=== PATIENT | female | born 1975 | race Two or more races ===

== ENCOUNTER 2019-02-09 14:29 | Emergency (ER) | payer OTHER ==
[~2019-02-09] VITALS: Ht 154.9 cm; Wt 69.9 kg
[2019-02-09] MEDS ORDERED: IV NORMAL SALINE 1000ML BAG 1,000 ML IV ONE (16:00)
[2019-02-09] MEDS ORDERED: PROCHLORPERAZINE 10 MG/2 ML VIAL. IV ONE (16:00)
[2019-02-09] MEDS ORDERED: diphenhydrAMINE 50 MG/ML VIAL IVP ONE (16:00)
[2019-02-09] MEDS ORDERED: KETOROLAC 30 MG/ML VIAL. IV ONE (16:30)
--- NOTE | 2019-02-09 16:35 | PHYS DOC ---
Past Medical History Past Medical History: No Pertinent History (IRENE BARKLEY APRN) Past Surgical History: No Surgical History (IRENE BARKLEY APRN) Alcohol Use: None Drug Use: None (IRENE BARKLEY APRN) Adult General Chief Complaint Chief Complaint: HEADACHE HPI HPI Patient is a 43 year old female who presents with awoke this morning with a frontal headache that does not radiate and she rates her pain a 10 out 10. Patient states she has had this headache before. Patient states in the past she had nausea and vomiting with it this time she is not. Vital signs within normal limits she is afebrile. Patient states she has some weakness in her legs. She states she did not take any pain medication today. Patient's history is diabetes of which takes metformin. (IRENE BARKLEY APRN) Review of Systems Review of Systems Constitutional: Denies fever or chills [] Eyes: Denies change in visual acuity, redness, or eye pain [] HENT: Denies nasal congestion or sore throat [] Respiratory: Denies cough or shortness of breath [] Cardiovascular: No additional information not addressed in HPI [] GI: Denies abdominal pain, nausea, vomiting, bloody stools or diarrhea [] : Denies dysuria or hematuria [] Musculoskeletal: Denies back pain or joint pain [] Integument: Denies rash or skin lesions [] Neurologic: headache, focal weakness or denies sensory changes [] All other systems were reviewed and found to be within normal limits, except as documented in this note. (IRENE BARKLEY APRN) Current Medications Current Medications Current Medications Medications (Trade) Dose Ordered Sig/Robby Start Time Stop Time Status Last Admin Dose Admin Diphenhydramine HCl (Benadryl) 25 mg 1X ONCE 02/09/19 16:00 02/09/19 16:01 DC 02/09/19 16:42 25 MG Ketorolac Tromethamine (Toradol 30mg Vial) 30 mg 1X ONCE 02/09/19 16:30 02/09/19 16:31 DC 02/09/19 16:42 30 MG Prochlorperazine Edisylate (Compazine) 10 mg 1X ONCE 02/09/19 16:00 02/09/19 16:01 DC 02/09/19 16:42 10 MG Sodium Chloride 1,000 ml @ 1,000 mls/hr 1X ONCE 02/09/19 16:00 02/09/19 16:59 DC 02/09/19 16:42 1,000 MLS/HR (KEYON STANLEY MD) Allergies Allergies Allergies Coded Allergies Type Severity Reaction Last Updated Verified No Known Drug Allergies 02/09/19 No (KEYON STANLEY MD) Physical Exam Physical Exam Constitutional: Well developed, well nourished, no acute distress, non-toxic appearance. [] HENT: Normocephalic, atraumatic, bilateral external ears normal, oropharynx moist, no oral exudates, nose normal. [] Eyes: PERRLA, EOMI, conjunctiva normal, no discharge. [] Neck: Normal range of motion, no tenderness, supple, no stridor. [] Cardiovascular:Heart rate regular rhythm, no murmur [] Lungs & Thorax: Bilateral breath sounds clear to auscultation [] Abdomen: Bowel sounds normal, soft, no tenderness, no masses, no pulsatile masses. [] Skin: Warm, dry, no erythema, no rash. [] Back: No tenderness, no CVA tenderness. [] Extremities: No tenderness, no cyanosis, no clubbing, ROM intact, no edema. [] Neurologic: Alert and oriented X 3, normal motor function, normal sensory function, no focal deficits noted. [] Psychologic: Affect normal, judgement normal, mood normal. Normal physical exam. [] (BAFUS,IRENE Turk APRN) Current Patient Data Vital Signs Vital Signs Date Time Temp Pulse Resp B/P (MAP) Pulse Ox O2 Delivery O2 Flow Rate FiO2 02/09/19 17:45 74 14 99 02/09/19 15:12 98.0 155/81 (105) Room Air 98.0 (KEYON STANLEY MD) Lab Values Laboratory Tests Test 02/09/19 16:28 02/09/19 16:30 02/09/19 16:35 Urine Color Yellow Urine Clarity Clear Urine pH 7.0 Urine Specific Bayard 1.010 Urine Protein Negative mg/dL (NEG-TRACE) Urine Glucose (UA) 250 mg/dL (NEG) Urine Ketones (Stick) Negative mg/dL (NEG) Urine Blood Negative (NEG) Urine Nitrite Negative (NEG) Urine Bilirubin Negative (NEG) Urine Urobilinogen Dipstick 0.2 mg/dL (0.2 mg/dL) Urine Leukocyte Esterase Trace (NEG) Urine RBC 0 /HPF (0-2) Urine WBC 1-4 /HPF (0-4) Urine Squamous Epithelial Cells Occ /LPF Urine Bacteria Moderate /HPF (0-FEW) Urine Mucus Slight /LPF White Blood Count 8.0 x10^3/uL (4.0-11.0) Red Blood Count 5.17 x10^6/uL (3.50-5.40) Hemoglobin 14.1 g/dL (12.0-15.5) Hematocrit 43.7 % (36.0-47.0) Mean Corpuscular Volume 85 fL (79-100) Mean Corpuscular Hemoglobin 27 pg (25-35) Mean Corpuscular Hemoglobin Concent 32 g/dL (31-37) Red Cell Distribution Width 13.3 % (11.5-14.5) Platelet Count 283 x10^3/uL (140-400) Neutrophils (%) (Auto) 61 % (31-73) Lymphocytes (%) (Auto) 28 % (24-48) Monocytes (%) (Auto) 9 % (0-9) Eosinophils (%) (Auto) 2 % (0-3) Basophils (%) (Auto) 1 % (0-3) Neutrophils # (Auto) 4.9 x10^3uL (1.8-7.7) Lymphocytes # (Auto) 2.2 x10^3/uL (1.0-4.8) Monocytes # (Auto) 0.7 x10^3/uL (0.0-1.1) Eosinophils # (Auto) 0.1 x10^3/uL (0.0-0.7) Basophils # (Auto) 0.0 x10^3/uL (0.0-0.2) Sodium Level 141 mmol/L (136-145) Potassium Level 3.4 mmol/L (3.5-5.1) L Chloride Level 103 mmol/L (98-107) Carbon Dioxide Level 31 mmol/L (21-32) Anion Gap 7 (6-14) Blood Urea Nitrogen 8 mg/dL (7-20) Creatinine 0.6 mg/dL (0.6-1.0) Estimated GFR (Cockcroft-Gault) 109.6 Glucose Level 175 mg/dL (70-99) H Calcium Level 8.8 mg/dL (8.5-10.1) POC Urine HCG, Qualitative Hcg negative (Negative) Laboratory Tests 02/09/19 16:30 Laboratory Tests 02/09/19 16:30 (KEYON STANLEY MD) Lab Values Laboratory Tests Test 02/09/19 16:28 02/09/19 16:30 02/09/19 16:35 Urine Color Yellow Urine Clarity Clear Urine pH 7.0 Urine Specific Bayard 1.010 Urine Protein Negative mg/dL (NEG-TRACE) Urine Glucose (UA) 250 mg/dL (NEG) Urine Ketones (Stick) Negative mg/dL (NEG) Urine Blood Negative (NEG) Urine Nitrite Negative (NEG) Urine Bilirubin Negative (NEG) Urine Urobilinogen Dipstick 0.2 mg/dL (0.2 mg/dL) Urine Leukocyte Esterase Trace (NEG) Urine RBC 0 /HPF (0-2) Urine WBC 1-4 /HPF (0-4) Urine Squamous Epithelial Cells Occ /LPF Urine Bacteria Moderate /HPF (0-FEW) Urine Mucus Slight /LPF White Blood Count 8.0 x10^3/uL (4.0-11.0) Red Blood Count 5.17 x10^6/uL (3.50-5.40) Hemoglobin 14.1 g/dL (12.0-15.5) Hematocrit 43.7 % (36.0-47.0) Mean Corpuscular Volume 85 fL (79-100) Mean Corpuscular Hemoglobin 27 pg (25-35) Mean Corpuscular Hemoglobin Concent 32 g/dL (31-37) Red Cell Distribution Width 13.3 % (11.5-14.5) Platelet Count 283 x10^3/uL (140-400) Neutrophils (%) (Auto) 61 % (31-73) Lymphocytes (%) (Auto) 28 % (24-48) Monocytes (%) (Auto) 9 % (0-9) Eosinophils (%) (Auto) 2 % (0-3) Basophils (%) (Auto) 1 % (0-3) Neutrophils # (Auto) 4.9 x10^3uL (1.8-7.7) Lymphocytes # (Auto) 2.2 x10^3/uL (1.0-4.8) Monocytes # (Auto) 0.7 x10^3/uL (0.0-1.1) Eosinophils # (Auto) 0.1 x10^3/uL (0.0-0.7) Basophils # (Auto) 0.0 x10^3/uL (0.0-0.2) Sodium Level 141 mmol/L (136-145) Potassium Level 3.4 mmol/L (3.5-5.1) L Chloride Level 103 mmol/L (98-107) Carbon Dioxide Level 31 mmol/L (21-32) Anion Gap 7 (6-14) Blood Urea Nitrogen 8 mg/dL (7-20) Creatinine 0.6 mg/dL (0.6-1.0) Estimated GFR (Cockcroft-Gault) 109.6 Glucose Level 175 mg/dL (70-99) H Calcium Level 8.8 mg/dL (8.5-10.1) POC Urine HCG, Qualitative Hcg negative (Negative) Laboratory Tests 02/09/19 16:30 Laboratory Tests 02/09/19 16:30 (IRENE BARKLEY APRN) EKG EKG [] (IRENE BARKLEY APRN) Radiology/Procedures Radiology/Procedures CT Head (IRENE BARKLEY APRN) Impressions: [facility] [address] [place] [address] IMAGING REPORT Signed PATIENT: MITUL FREEMAN ACCOUNT: [id number] : 1975 LOCATION: ER AGE: 43 SEX: F EXAM STATUS: REG ER ORD. PHYSICIAN: IRENE BARKLEY APRN REASON: head ache PROCEDURE: CT HEAD WO CONTRAST CT of the head without contrast, 02/09/2019: HISTORY: Headache, dizziness The ventricles are within normal limits in size. There is no shift of the midline structures. There is no evidence of acute intracranial hemorrhage or mass effect. IMPRESSION: No acute intracranial abnormality is detected. PQRS Compliance Statement: One or more of the following individualized dose reduction techniques were utilized for this examination: 1. Automated exposure control 2. Adjustment of the mA and/or kV according to patient size 3. Use of iterative reconstruction technique Electronically signed by: Bo Saba MD (02/09/2019 5:00 PM) [facility] DICTATED and SIGNED BY: BO SABA MD DATE: 02/09/19 1700 (IRENE BARKLEY APRN) Course & Med Decision Making Course & Med Decision Making Patient is a 43 year old female who presents with awoke this morning with a frontal headache that does not radiate and she rates her pain a 10 out 10. Patient states she has had this headache before. Patient states in the past she had nausea and vomiting with it this time she is not. Vital signs within normal limits she is afebrile. Patient states she has some weakness in her legs. She states she did not take any pain medication today. Patient's history is diabetes of which takes metformin. Alert and oriented. 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 Patient states that she does not have any light sensitivity but she does prefer a darkened it does help her headache. Patient denies any numbness or tingling states she has some weakness in her legs. Patient states that she does not have any nausea, vomiting, diarrhea, fever, neck pain, visual changes. NIH score is 0. Patient is ambulatory and was ambulatory with a steady gait to her room. PERRLA. Abdomen is soft and nontender. Clear to auscultation in all lobes. Heart rate regular without murmur. Patient speaks in full clear sentences. Alert and oriented. Skin pink warm and dry. Mucous membranes are moist. No extremity edema. Blood work is unremarkable. Urinalysis shows no infection. Head CT shows no acute findings. Patient states she is feeling better and rates her pain at a 4/ 10. Patient will be discharged home. Patient to follow up with primary care provider. Differential diagnosis for this patient is Migraine headache. (IRENE BARKLEY APRN) Course & Med Decision Making Staff Physician Addendum: I was working in the ER during the course of this patient's visit. I was available for consultation as needed, but I was not directly involved in the care of this patient. (KEYON STANLEY MD) Dragon Disclaimer Dragon Disclaimer This electronic medical record was generated, in whole or in part, using a voice recognition dictation system. (IRENE BARKLEY APRN) Departure Departure Impression: Primary Impression: Headache Disposition: 01 HOME, SELF-CARE Condition: STABLE Referrals: UNKNOWN PCP NAME (PCP) Patient Instructions: General Headache Without Cause Additional Instructions: FOLLOW UP WITH PRIMARY CARE SOON POSSIBLE. RETURN FOR VOMITING, WEAKNESS, NUMBNESS. Scripts Hydrocodone/Apap 5-325 (NORCO 5-325 TABLET) 1 Each Tablet 1 TAB PO PRN Q6HRS PRN for PAIN, #8 TAB 0 Refills Prov: IRENE BARKLEY APRN 02/09/19 NIHSS Stroke Scale NIH Stroke Scale: NIH Stroke Scale Response (Comments) Value Level of Consciousness: 0 Alert/Responsive 0 LOC Questions: 0 Answers both correctly 0 LOC Commands: 0 Performs both tasks 0 Best Gaze: 0 Normal 0 Visual: 0 No visual loss 0 Facial Palsy: 0 Normal, symmetrical 0 Motor - Left Arm 0 No drift 0 Motor - Right Arm 0 No drift 0 Motor - Left Leg 0 No drift 0 Motor: Right Leg 0 No drift 0 Limb Ataxia: 0 Absent 0 Sensory: 0 No loss 0 Best Language: 0 Normal 0 Dysathria: 0 Normal 0 Extinction and Inattention: 0 Normal 0 Total 0 Problem Qualifiers Primary Impression: Headache Headache type: unspecified Headache chronicity pattern: unspecified pattern Intractability: not intractable Qualified Codes: R51 - Headache IRENE BARKLEY APRN Feb 09, 2019 16:35 KEYON STANLEY MD Feb 10, 2019 08:07
[2019-02-09 16:43] LABS: BASO % 1 % (0-3); EOS # 0.1 x10^3/uL (0.0-0.7); EOS % 2 % (0-3); HEMATOCRIT 43.7 % (36.0-47.0); HEMOGLOBIN 14.1 g/dL (12.0-15.5); LYMPH # 2.2 x10^3/uL (1.0-4.8); LYMPH % 28 % (24-48); MEAN CORPUSCULAR HEMOGLOBIN 27 pg (25-35); MEAN CORPUSCULAR HGB CONC 32 g/dL (31-37); MEAN CORPUSCULAR VOLUME 85 fL (79-100); MONO # 0.7 x10^3/uL (0.0-1.1); MONO % 9 % (0-9); NEUT # 4.9 x10^3uL (1.8-7.7); NEUT % 61 % (31-73); PLATELET COUNT 283 x10^3/uL (140-400); RED BLOOD COUNT 5.17 x10^6/uL (3.50-5.40); RED CELL DISTRIBUTION WIDTH 13.3 % (11.5-14.5)
[2019-02-09 16:47] LABS: BILIRUBIN,URINE NEGATIVE (NEG); CLARITY,URINE CLEAR; COLOR,URINE YELLOW; NITRITE,URINE NEGATIVE (NEG); PROTEIN,URINE NEGATIVE (NEG-TRACE); UROBILINOGEN,URINE 0.2 mg/dL (0.2 mg/dL)
[2019-02-09 16:57] LABS: BACTERIA,URINE MODERATE /HPF (0-FEW); RBC,URINE 0 /HPF (0-2); SQUAMOUS EPITHELIAL CELL,UR OCC /LPF
[2019-02-09 16:59] LABS: CALCIUM 8.8 mg/dL (8.5-10.1); CREATININE 0.6 mg/dL (0.6-1.0); GFR 109.6; POTASSIUM 3.4 mmol/L (3.5-5.1)
--- NOTE | 2019-02-09 17:03 | RAD ---
CT of the head without contrast, 02/09/2019: HISTORY: Headache, dizziness The ventricles are within normal limits in size. There is no shift of the midline structures. There is no evidence of acute intracranial hemorrhage or mass effect. IMPRESSION: No acute intracranial abnormality is detected. RS Compliance Statement: One or more of the following individualized dose reduction techniques were utilized for this examination: 1. Automated exposure control 2. Adjustment of the mA and/or kV according to patient size 3. Use of iterative reconstruction technique Electronically signed by: Bo Saba MD (02/09/2019 5:00 PM) [facility]
[2019-02-09] MEDS ORDERED: HYDR-3164 PO (17:30)
[2019-02-09 17:45] VITALS: BP 122/65
== END 2019-02-09 17:53 | disposition home or self-care (01) ==
LOC: ER 14:29
DX: R51 Headache (principal); R11.2 Nausea with vomiting, unspecified; R53.1 Weakness
CPT/HCPCS: 36415; 70450; 80048; 81001; 81025; 85025; 87086; 96361; 96374; 96375; 99284; J0780; J1200; J1885; J7030